=== PATIENT | female | born 1930 | race Caucasian/White ===

== ENCOUNTER 2017-03-13 22:22 | Emergency (ER) | payer MEDICARE, BC ==
[~2017-03-13] VITALS: Ht 160 cm; Wt 68.0 kg
--- NOTE | 2017-03-13 22:40 | NUR ---
DR PUGA INTO EVAL PATIENT Addendum: 03/13/17 at 2330 by [email or web address] Patient discharged to home in stable conditon WITH SON TAKING PATIENT HOME. Written and verbal after care instructions given. Patient verbalizes understanding of instructions. PLACED PATIENT ON WHEELCHAIR TO PLACE IN PRIVATE VEHICLE
[2017-03-13] MEDS ORDERED: LIDOCAINE HCL 2% 20 ML VIAL TP ONE (23:15)
[2017-03-13 23:31] VITALS: BP 140/66
== END 2017-03-13 23:32 | disposition home or self-care (01) ==
LOC: ER 22:28
DX: S01.81XA Laceration without foreign body of other part of head, initial encounter (principal); I10 Essential (primary) hypertension; Z88.0 Allergy status to penicillin; W25.XXXA Contact with sharp glass, initial encounter; Y92.89 Other specified places as the place of occurrence of the external cause; Y93.89 Activity, other specified; Y99.8 Other external cause status
CPT/HCPCS: A4217; A4663

== ENCOUNTER 2021-02-25 15:22 | Inpatient (IN) | payer MEDICARE, BC ==
[~2021-02-25] VITALS: Ht 157.5 cm; Wt 47.6 kg
[2021-02-25] MEDS ORDERED: METO-358 PO (15:54)
[2021-02-25] MEDS ORDERED: LOSA1TAB36 PO (15:54)
[2021-02-25] MEDS ORDERED: AMLO10TA59 PO (15:54)
[2021-02-25] MEDS ORDERED: MELO-107 PO (15:54)
[2021-02-25 15:55] LABS: HEMATOCRIT 38.7 % (31.2-41.9); MEAN CORPUSCULAR HEMOGLOBIN 30.2 uug (24.7-32.8); MEAN CORPUSCULAR VOLUME 88.9 fL (75.5-95.3); PLATELET COUNT (AUTO) 192 K/uL (179-408)
[2021-02-25 15:58] LABS: CREATININE 1.3 mg/dL (0.6-1.3); POTASSIUM 4.3 mmol/L (3.5-5.1)
[2021-02-25 16:11] LABS: BILIRUBIN,DIRECT 0.1 mg/dL (0.0-0.2); BILIRUBIN,TOTAL 0.6 mg/dL (0.2-1.0); TOTAL PROTEIN, SERUM 7.1 g/dL (6.4-8.2)
[2021-02-25 16:28] LABS: *BILIRUBIN,URIN NEGATIVE (NEGATIVE); *BLOOD, URINE 3+ (NEGATIVE); *CLARITY,URINE CLOUDY (CLEAR); *KETONES,URINE TRACE (NEGATIVE); *UROBILINOGEN,URINE 0.2 E.U./dl (NORMAL); LEUKOCYTE ESTERASE ,URINE 3+ (NEGATIVE); NITRITE, URINE NEGATIVE (NEGATIVE); UGLUCOSE TRACE (NEGATIVE)
[2021-02-25] MEDS ORDERED: IV NORMAL SALINE 500 ML IV ONE (16:30)
[2021-02-25] MEDS ORDERED: CEFTRIAXONE 1 G in IV DEXTROSE 5% 50 ML IV ONE (16:30)
[2021-02-25 16:38] LABS: *COLOR,URINE DARK YELLOW (YELLOW)
[2021-02-25 16:39] LABS: BACTERIA,URINE MODERATE /HPF (NONE SEEN); RBC,URINE TNTC /HPF (0-3); SQUAMOUS EPITHELIAL CELL,UR FEW /HPF (NONE SEEN); WBC,URINE TNTC /HPF (0-3)
[2021-02-25] MEDS ORDERED: AZITHROMYCIN 250 MG TABLET PO ONE (16:45)
[2021-02-25] MEDS ORDERED: ACETAMINOPHEN ES 500 MG TABLET PO ONE (16:45)
[2021-02-25] MEDS ORDERED: CEFTRIAXONE /D5W 50ML IVPB **ER PYXIS IV ONE (16:51)
[2021-02-25] MEDS ORDERED: AZITHROMYCIN 250 MG TABLET ONE (16:51)
[2021-02-25] MEDS ORDERED: ACETAMINOPHEN ES 500 MG TABLET ONE (16:51)
--- NOTE | 2021-02-25 18:10 | NUR ---
[facility] [place] PROVIDED FOR PT. PT'S SON ATBED SIDE ASSISSTING PT.
[2021-02-25] MEDS ORDERED: Z GUARD REMEDY PASTE 57 GM TUBE TOP PRN (18:30)
[2021-02-25] MEDS ORDERED: MAGNESIUM HYDROXIDE 30 ML LIQUID UDC PO PRN (18:30)
[2021-02-25] MEDS ORDERED: ONDANSETRON 4 MG/2 ML VIAL IV PRN (18:30)
[2021-02-25] MEDS ORDERED: ACETAMINOPHEN 325 MG TABLET PO PRN (18:30)
[2021-02-25] MEDS ORDERED: ENOXAPARIN SODIUM 30 MG/0.3 ML DISP.SYRIN SQ SCH (21:30)
--- NOTE | 2021-02-25 22:01 | NUR ---
Patient refused to have any procedure done like X Rays and EKG.
--- NOTE | 2021-02-25 22:05 | NUR ---
Yadira collazo in EDM - 02/25/21 at 2208 by [email or web address] Patient states he sleeps in his Semi Truck but truck is in shop today. Is homeless at this time.
--- NOTE | 2021-02-25 22:07 | NUR ---
Note zay in EDM - 02/25/21 at 2210 by [email or web address] Patient does not wish to proceed with medical care recommended by Dr. Song ). Patient given information related to possible complications, up to and including , which could occur as a result of leaving the hospital at this time. Patient verbalizes understanding of risks involved due to leaving against medical advice. Patient has signed AMA form.
[2021-02-25] MEDS ORDERED: IPRATROPIUM BROMIDE 0.5 MG/2.5 ML NEBU NEB PRN (22:30)
[2021-02-25] MEDS ORDERED: ALBUTEROL SULFATE 2.5 MG/3 ML NEBU NEB PRN (22:30)
--- NOTE | 2021-02-25 22:42 | NUR ---
Transfered to 3rd floor Tele via gurny with no distress noted.
--- NOTE | 2021-02-25 23:00 | NUR ---
Admitted patient to Tele unit from Er via [facility] with Dx of sepsis and acute hypoxic resp failure. Patient alertx1 with confusion.Oriented patient to place ,unit ,room and call light.Denies pain or discomfort at this time .O2 at 2LPM via NC sating 96 %.Denies SOB.IV on left hand was out. Inserted new Iv line on left FA using 22 g with good blood return. Started IVF running at 70 ml/hr.Tolerated well.NSR on Tele. Safety measures in place.Will continue to monitor.
[2021-02-25] MEDS: IV NS 1000 ML 1,000 ML IV PRN (23:02)
[2021-02-25 23:30] VITALS: BP 136/49
[2021-02-26 05:12] VITALS: BP 130/58
[2021-02-26] MEDS: PANTOPRAZOLE SODIUM 40 MG TABLET.DR PO SCH (06:03)
--- NOTE | 2021-02-26 06:10 | NUR ---
ABG WAS DONE BY EZRA PARRA ON 2 2L/M NC , DOING WELL. Jerson MARTINEZ MEMBER OF THE LEGISLATIVE [employer]NCIL Addendum: 02/26/21 at 0610 by HENRIK PARRA Amended: Links added.
[2021-02-26 06:39] LABS: HEMATOCRIT 33.1 % (31.2-41.9); MEAN CORPUSCULAR VOLUME 87.7 fL (75.5-95.3); PLATELET COUNT (AUTO) 178 K/uL (179-408)
[2021-02-26 06:48] LABS: MAGNESIUM 1.8 mg/dL (1.8-2.4); POTASSIUM 3.6 mmol/L (3.5-5.1)
[2021-02-26 08:00] VITALS: BP 126/54
[2021-02-26] MEDS: AMLODIPINE 10 MG TABLET PO SCH (08:56)
[2021-02-26] MEDS: METOPROLOL SUCCINATE XL 50 MG TAB.SR.24H PO SCH (08:56)
[2021-02-26] MEDS: HYDROCHLOROTHIAZIDE 12.5 MG CAPSULE PO SCH (08:57)
[2021-02-26] MEDS: LOSARTAN POTASSIUM 50 MG TABLET PO SCH (08:57)
--- NOTE | 2021-02-26 09:38 | NUR ---
Received pt. Pt is a/o x 2-3, confused at times. Mental status improved in comparison to yesterday per report given and per son's notation this am. Son at bedside. Pt presents with normal sinus rhythm saturating at 97% on 2 L NC at this time. No temperature this am. Pt continues to have pain during urination but WBCs downward trending at 12.6 this am. Lactic acid decreased to 0.8. Blood and urine specimens still pending, Pt will have and ID consult as well as Pulmonology consult still pending. Pt does not seem to be in any acute distress, comfort measures provided ,call light within reach. Will continue to monitor.
[2021-02-26 12:00] VITALS: BP 133/70
[2021-02-26] MEDS: IV NS 1000 ML 1,000 ML IV PRN (12:48)
[2021-02-26] MEDS ORDERED: CEFEPIME HCL 1 G in IV DEXTROSE 5% 50 ML IV SCH (15:00)
[2021-02-26 16:09] VITALS: BP 143/55
[2021-02-26] MEDS ORDERED: CEFTRIAXONE 1 G in IV DEXTROSE 5% 50 ML IV SCH (17:00)
[2021-02-26] MEDS: PHENAZOPYRIDINE HCL 100 MG TABLET PO SCH ×2 (18:20→21:15)
--- NOTE | 2021-02-26 18:47 | NUR ---
Pt is a/o x 3, forgetful at times. Pt is presenting with normal sinus rhythm, titrated off of oxygen, saturating 93% on room air. Pt is cooperative with care, takes medications whole orally. Pt is to be NPO at midnight due to having a cystoscopy in the am. Consent was given by the son, Evans. Pt shows no signs of acute distress. Currently running NS at 70cc on the left forearm (22g, patent and intact. Comfort measures provided, call light within reach, Will endorse to director nursery school.
--- NOTE | 2021-02-26 19:30 | NUR ---
RECEIVED PT AWAKE, ALERT AND ORIENTEDX4.. PT IN NO ACUTE DISTRESS. IV INTACT. SAFETY AND COMFORT PROVIDED.LEFT A MESSAGE TO HIS SON TO CALLBACK FOR CONSENT NEEDED. WILL CONTINUE TO MONITOR.
--- NOTE | 2021-02-26 19:43 | NUR ---
Per review of chart, only verbal consent was given by son for the cystoscopy. Consent order put in at 1926 for cystoscopy and bladder resection. Consent not obtained for this procedure, endorsed to slot shift manager RN.
--- NOTE | 2021-02-26 19:49 | NUR ---
received Dr. Britt telephone order to get consent for the procedure tomorrow and pt npo after midnight. Pt aware.
[2021-02-26 20:00] VITALS: BP 96/58
[2021-02-26] MEDS: ENOXAPARIN SODIUM 40 MG/0.4 ML DISP.SYRIN SQ SCH (20:10)
--- NOTE | 2021-02-26 21:21 | NUR ---
Trying to call the son and left message several times to call back for the consent of his mother for procedure tomorrow. Got consent with the granddaughter who knows the procedure will take place ryan. Witness with another RN over the phone.
--- NOTE | 2021-02-26 23:45 | NUR ---
Son called and gave consent . Another RN witness. Son verify the home medication of her mother.
[2021-02-27] VITALS: BP 114/38
[2021-02-27 04:00] VITALS: BP 145/53
[2021-02-27] MEDS: IV NS 1000 ML 1,000 ML IV PRN (04:05)
[2021-02-27] MEDS: PHENAZOPYRIDINE HCL 100 MG TABLET PO SCH ×3 (06:00→21:30)
--- NOTE | 2021-02-27 06:06 | NUR ---
PT SLEPT COMFORTABLY. PT IN NO ACUTE DISTRESS. IV INTACT. PT STABLE. PT ON SINUS RHYTHM.PT ON NPO. PT STABLE. SAFETY AND COMFORT PROVIDED. WILL ENDORSE TO INCOMING NURSE FOR CONTINUITY OF CARE.
[2021-02-27] MEDS: PANTOPRAZOLE SODIUM 40 MG TABLET.DR PO SCH (06:14)
[2021-02-27 06:27] LABS: HEMATOCRIT 31.2 % (31.2-41.9); MEAN CORPUSCULAR VOLUME 87.2 fL (75.5-95.3); PLATELET COUNT (AUTO) 162 K/uL (179-408)
[2021-02-27 06:41] LABS: CREATININE 0.9 mg/dL (0.6-1.3); MAGNESIUM 1.7 mg/dL (1.8-2.4); PHOSPHOROUS 3.1 mg/dL (2.5-4.9); POTASSIUM 3.1 mmol/L (3.5-5.1)
[2021-02-27 08:00] VITALS: BP 128/46
[2021-02-27] MEDS: CEFEPIME HCL 1 G in IV DEXTROSE 5% 50 ML IV SCH ×2 (08:53→20:21)
[2021-02-27] MEDS: METOPROLOL SUCCINATE XL 50 MG TAB.SR.24H PO SCH (08:54)
[2021-02-27 08:56] LABS: ABG BASE EXCESS -1.3 mmol/L; ABG HCO3 22.3 mmol/L; ABG PCO2 33.5 mmHg (35.0-45.0); ABG PH 7.441 (7.350-7.450); ABG PO2 65.8 mmHg (75.0-100.0); ABG SITE RIGHT RADIAL; ABG TOTAL HEMOGLOBIN 11.7 G/dL (12.0-16.0); COHb 0.4 % (0.5-1.5); MetHb 0.1 % (0.0-1.5); O2Hb 93.4 % (94.0-97.0); VENT MODE RA
[2021-02-27] MEDS: AMLODIPINE 10 MG TABLET PO SCH (09:00)
[2021-02-27] MEDS: LOSARTAN POTASSIUM 50 MG TABLET PO SCH (09:00)
[2021-02-27] MEDS: HYDROCHLOROTHIAZIDE 12.5 MG CAPSULE PO SCH (09:00)
[2021-02-27] MEDS ORDERED: ROCURONIUM BROMIDE 50 MG/5 ML VIAL ONE (09:51)
[2021-02-27] MEDS ORDERED: FENTANYL CITRATE 100 MCG/2 ML AMPUL ONE ×2 (09:51→12:02)
--- NOTE | 2021-02-27 10:21 | NUR ---
Received pt. Pt is a/o x 3 forgetful at times, saturating 95% on room air. D/Cd telemetry. Pt was taken to OR around 0940 for cystoscopy BP 128/46. 0900 hydrochlorothiazide held due to potassium being low (3.1). An order for potassium replacement has been ordered but pt currently not on floor. Amlodipine and Losartan also held per OR request due to pt needing to receive anesthesia during procedure and it would put her at risk for hypotension. Metoprolol okay to be given per OR. Pt aware of procedure, consent signed by son in chart. No signs of acute distress or discomfort. Will continue to monitor pt.
[2021-02-27] MEDS: POTASSIUM CHLORIDE 50 ML IV SCH ×4 (10:45→14:37)
[2021-02-27] MEDS ORDERED: ONDANSETRON 4 MG/2 ML VIAL IV ONE (11:43)
[2021-02-27] MEDS ORDERED: GLYCOPYRROLATE 0.2 MG/ML VIAL IJ ONE (11:43)
[2021-02-27] MEDS ORDERED: DEXAMETHASONE SOD PHOSPHATE 4 MG INJ IV ONE (11:43)
[2021-02-27] MEDS ORDERED: hydrALAZINE HCL 20 MG/1 ML VIAL IM ONE (11:43)
[2021-02-27] MEDS ORDERED: NEOSTIGMINE METHYLSULFATE 10 MG/10 ML VIAL IM ONE (11:43)
[2021-02-27] MEDS ORDERED: SEVOFLURANE 250 ML BOTTLE IH ONE (11:43)
[2021-02-27] MEDS ORDERED: LIDOCAINE-MPF 2% 5 ML VIAL IJ ONE (11:43)
[2021-02-27] MEDS ORDERED: SUCCINYLCHOLINE CHLORIDE 200 MG/10 ML VIAL IV ONE (11:43)
[2021-02-27] MEDS ORDERED: ETOMIDATE 20 MG/10 ML VIAL IV ONE (11:43)
[2021-02-27 13:00] VITALS: BP 134/50
--- NOTE | 2021-02-27 13:00 | NUR ---
Pt returned from cystoscopy, vitals stable, discussed with family of the pt. Pt is now on lisa catheter on continuous bladder irrigation until completion of current bags of NS hanging. Per OR hang an extra 500cc after completion. Lisa draining clear yellow urine, no blood or clotting in drainage. Pt has manual irrigation ordered as needed after continuous ends. Pt is resumed on cardiac diet.
[2021-02-27] MEDS: MAGNESIUM SULFATE/D5W 100 ML IV SCH ×2 (15:23→18:12)
[2021-02-27] MEDS ORDERED: POTASSIUM CHLORIDE 10 MEQ, LIDOCAINE-MPF 1% 1 ML in IV DEXTROSE 5% 100 ML IV SCH (15:30)
[2021-02-27] MEDS ORDERED: POTASSIUM CHLORIDE 20 MEQ POWDER PACKET PO ONE (16:00)
[2021-02-27 16:05] VITALS: BP 131/50
[2021-02-27] MEDS: ENSURE ENLIVE (VAN) 240 ML LIQUID PO SCH (16:26)
--- NOTE | 2021-02-27 17:33 | NUR ---
Potassium supplement changed from IV to PO by Pharmacy. Ordered a midline insertion for pt due to fragile veins and complaint of pain/ burning sensation. Flushed IV site, stated that it did not burn, primed lining and started fluids again, no complaint of pain so far. IV is in an uncomfortable position, pt would benefit from midline insertion.
--- NOTE | 2021-02-27 19:40 | NUR ---
AO x 2/3, son is at the bedside, on room air saturating at 95%, HARI midline placed, intact and patent. Benavidez catheter draining well, call lights within reach, bed at lowest position, safety measures initiated.
--- NOTE | 2021-02-27 19:41 | NUR ---
Midline inserted on right upper arm 18g. Benavidez draining clear yellow urine. Pt is not in any acute distress or discomfort, call light within reach, endorsed to shift manager.
[2021-02-27 20:00] VITALS: BP 137/56
[2021-02-27] MEDS: ENOXAPARIN SODIUM 40 MG/0.4 ML DISP.SYRIN SQ SCH (20:23)
--- NOTE | 2021-02-27 22:03 | NUR ---
Patient confused, pulled out HARI midline. IV on left forearm still in, intact and patent.
[2021-02-28 04:00] VITALS: BP 125/68
[2021-02-28] MEDS: PANTOPRAZOLE SODIUM 40 MG TABLET.DR PO SCH (06:02)
[2021-02-28] MEDS: PHENAZOPYRIDINE HCL 100 MG TABLET PO SCH ×3 (06:02→21:11)
--- NOTE | 2021-02-28 06:30 | NUR ---
Patient slept intermittently throughout the night, AO X 2, can be forgetful at times, IV intact and patent running NS at 70ml, lisa catheter drained, yellow and cloudy appearance, skin intact, tolerated medication and care. Call lights within reach, safety measures met throughout the night. Will endorse to am shift
[2021-02-28 06:39] LABS: HEMATOCRIT 33.6 % (31.2-41.9); MEAN CORPUSCULAR HEMOGLOBIN 29.9 uug (24.7-32.8); MEAN CORPUSCULAR VOLUME 86.6 fL (75.5-95.3); PLATELET COUNT (AUTO) 212 K/uL (179-408)
[2021-02-28 07:41] LABS: MAGNESIUM 2.3 mg/dL (1.8-2.4); POTASSIUM 5.3 mmol/L (3.5-5.1)
[2021-02-28 08:00] VITALS: BP 122/65
[2021-02-28] MEDS: CEFEPIME HCL 1 G in IV DEXTROSE 5% 50 ML IV SCH ×2 (08:49→21:04)
[2021-02-28] MEDS: HYDROCHLOROTHIAZIDE 12.5 MG CAPSULE PO SCH (09:01)
[2021-02-28] MEDS: METOPROLOL SUCCINATE XL 50 MG TAB.SR.24H PO SCH (09:01)
[2021-02-28] MEDS: LOSARTAN POTASSIUM 50 MG TABLET PO SCH (09:01)
[2021-02-28] MEDS: AMLODIPINE 10 MG TABLET PO SCH (09:01)
[2021-02-28] MEDS: ENSURE ENLIVE (VAN) 240 ML LIQUID PO SCH ×3 (09:02→16:11)
[2021-02-28 11:21] VITALS: BP 114/57
[2021-02-28 15:52] VITALS: BP 116/59
[2021-02-28] MEDS: IV NS 1000 ML 1,000 ML IV PRN (17:18)
--- NOTE | 2021-02-28 18:20 | NUR ---
PATIENT REMAINED STABLE DURING THE SHIFT. ALL NEEDS ATTENDED. NO DISTRESS IDENTIFIED. SAFETY PRECAUTION MAINTAINED. FC DRAINING WELL. DENIES PAIN. IV INTACT TO THE LEFT FOREARM, INFUSING WELL. WILL ENDORSE TO THE NEXT SHIFT FOR CONTINUITY OF CARE.
[2021-02-28] MEDS ORDERED: SODIUM POLYSTYRENE SULFONATE 15 G/60 ML LIQUID UDC PO ONE (18:45)
[2021-02-28 20:06] VITALS: BP 137/59
[2021-02-28] MEDS: ENOXAPARIN SODIUM 40 MG/0.4 ML DISP.SYRIN SQ SCH (21:04)
--- NOTE | 2021-03-01 01:42 | NUR ---
Pt. is received awake in her room. Pt. is alert, oriented X 2 to person. Pt. affect is cooperative, confused. Left arm IV, no infiltration noted, running well. Room air. Compliant with medications. Redness on buttocks, cream barrier applied. Ambulates with assistance. Fall and safety precautions implemented.
[2021-03-01 04:12] VITALS: BP 135/66
[2021-03-01] MEDS: PANTOPRAZOLE SODIUM 40 MG TABLET.DR PO SCH (06:26)
[2021-03-01] MEDS: PHENAZOPYRIDINE HCL 100 MG TABLET PO SCH ×2 (06:26→13:30)
--- NOTE | 2021-03-01 07:47 | NUR ---
Received awake and oriented x3. No resp distress. Wants to go home. Denies pain or sob. Fc draining yellow urine. no hematuria. iv left arm patent, hydration ongoing and tolerated. pt is pleasant. safety measures in place. comfortable. cont to monitor.
[2021-03-01 07:58] LABS: HEMATOCRIT 35.3 % (31.2-41.9); MEAN CORPUSCULAR HEMOGLOBIN 29.6 uug (24.7-32.8); MEAN CORPUSCULAR VOLUME 87.5 fL (75.5-95.3); PLATELET COUNT (AUTO) 214 K/uL (179-408)
[2021-03-01 08:04] LABS: CREATININE 0.8 mg/dL (0.6-1.3); POTASSIUM 3.2 mmol/L (3.5-5.1)
[2021-03-01] MEDS: IV NS 1000 ML 1,000 ML IV PRN (08:11)
[2021-03-01] MEDS: CEFEPIME HCL 1 G in IV DEXTROSE 5% 50 ML IV SCH (08:11)
[2021-03-01] MEDS: ENSURE ENLIVE (VAN) 240 ML LIQUID PO SCH ×2 (08:35→13:30)
[2021-03-01] MEDS: HYDROCHLOROTHIAZIDE 12.5 MG CAPSULE PO SCH (08:35)
[2021-03-01] MEDS: METOPROLOL SUCCINATE XL 50 MG TAB.SR.24H PO SCH (08:36)
[2021-03-01] MEDS: AMLODIPINE 10 MG TABLET PO SCH (08:36)
[2021-03-01] MEDS: LOSARTAN POTASSIUM 50 MG TABLET PO SCH (08:36)
[2021-03-01] MEDS: POTASSIUM CHLORIDE 20 MEQ TAB.PRT.SR PO SCH ×2 (10:14→11:47)
[2021-03-01 11:24] VITALS: BP 123/48
[2021-03-01 15:20] VITALS: BP 128/45
--- NOTE | 2021-03-01 16:00 | NUR ---
pt aware she's being discharged. no acute distress. lisa catheter intact draining yellow urine. no hematuria/sediments noted. follow up and medication instruction given and she verbalized understanding. removed iv no bleeding noted. belongings list completed.
--- NOTE | 2021-03-01 16:26 | NUR ---
pt picked up by granddaughter nader and son ev. no acute distress. fc intact and patent. both son and granddaughter are aware of follow up appt with dr. garcia and expressed understanding. granddaughter stated she was contacted by [place] (karyna) that hh will be visiting her grandmother. pt discharged via private car in stable condition.
== END 2021-03-01 16:20 | disposition home health service (06) | DRG 871 ==
LOC: ER 15:24 → TRANSITION 21:08 → TELE3 22:15 → MEDSURG3 02-27 10:51
PROVIDERS: ADMIT Nurse Practitioner Family; ATTEND Nurse Practitioner Acute Care
DX: A41.9 Sepsis, unspecified organism (principal); J96.21 Acute and chronic respiratory failure with hypoxia; N12 Tubulo-interstitial nephritis, not specified as acute or chronic; E87.2 Acidosis; E44.1 Mild protein-calorie malnutrition; J44.1 Chronic obstructive pulmonary disease with (acute) exacerbation; N17.9 Acute kidney failure, unspecified; R65.20 Severe sepsis without septic shock; F03.90 Unspecified dementia, unspecified severity, without behavioral disturbance, psychotic disturbance, mood disturbance, and anxiety; Z86.73 Personal history of transient ischemic attack (TIA), and cerebral infarction without residual deficits; F09 Unspecified mental disorder due to known physiological condition; I10 Essential (primary) hypertension; I70.8 Atherosclerosis of other arteries; K57.30 Diverticulosis of large intestine without perforation or abscess without bleeding; K80.20 Calculus of gallbladder without cholecystitis without obstruction; N20.0 Calculus of kidney; N28.1 Cyst of kidney, acquired; B96.89 Other specified bacterial agents as the cause of diseases classified elsewhere; Z87.440 Personal history of urinary (tract) infections; Z87.891 Personal history of nicotine dependence; Z96.643 Presence of artificial hip joint, bilateral
CPT/HCPCS: 36415; 36600; 70030-TC; 70450; 71045; 83605; 83735; 84100; 85025; 85730; 86803; 87040; 87086; 87400; 87806; 93005; 93307; 97161; A4217; A4663; A9150; G0378; J0330; J0360; J0692; J0696; J1100; J1650; J2405; J3010; J3475; J3480; J3490; J7030; J7040; J7060; Q0144

== ENCOUNTER 2021-09-18 14:10 | Inpatient (IN) | payer MEDICARE, BC ==
[~2021-09-18] VITALS: Ht 157.5 cm; Wt 40.8 kg
[~2021-09-18 14:10] MED LIST: AMLO10TA59 PO; LOSA1TAB36 PO; MELO-107 PO; METO-358 PO
[2021-09-18] MEDS ORDERED: MORP15TA PO (14:33)
[2021-09-18] MEDS ORDERED: LORA-258 PO (14:33)
[2021-09-18 14:44] LABS: ABG BASE EXCESS -8.1 mmol/L; ABG HCO3 17.1 mmol/L; ABG PCO2 34.6 mmHg (35.0-45.0); ABG PH 7.312 (7.350-7.450); ABG PO2 52.6 mmHg (75.0-100.0); ABG SITE RIGHT BRACHIAL; COHb 0.4 % (0.5-1.5); MetHb 0.2 % (0.0-1.5); O2Hb 84.6 % (94.0-97.0)
[2021-09-18] MEDS ORDERED: IV NORMAL SALINE 500 ML BAG IV ONE ×3 (14:45→15:30)
[2021-09-18 14:46] LABS: HEMATOCRIT 41.4 % (31.2-41.9); MEAN CORPUSCULAR HEMOGLOBIN 29.4 uug (24.7-32.8); PLATELET COUNT (AUTO) 465 K/uL (179-408)
--- NOTE | 2021-09-18 15:01 | NUR ---
Placed a second HL ON LAC 18 angio.
--- NOTE | 2021-09-18 15:05 | NUR ---
Pt placed on BIPAP by RT.
[2021-09-18] MEDS ORDERED: METRONIDAZOLE 500 MG/NS 100ML 100 ML IV ONE (15:08)
[2021-09-18] MEDS ORDERED: CEFTRIAXONE /D5W 50ML IVPB **ER PYXIS IV ONE (15:08)
[2021-09-18 15:10] LABS: ALANINE AMINOTRANSFERASE 16 U/L (14-59); ALKALINE PHOSPHATASE 85 U/L (50-136); ASPARTATE AMINOTRANSFERASE 19 U/L (15-37); BILIRUBIN,TOTAL 0.6 mg/dL (0.2-1.0); CARBON DIOXIDE 20 mmol/L (21-32); CREATININE 4.3 mg/dL (0.6-1.3); GLUCOSE 190 mg/dL (74-106); LIPASE 35 U/L (73-393); TOTAL PROTEIN, SERUM 8.2 g/dL (6.4-8.2)
[2021-09-18 15:14] LABS: CHLORIDE 95 mmol/L (98-107)
[2021-09-18] MEDS ORDERED: METRONIDAZOLE 500 MG/NS 100 ML PIGGYBACK IV ONE (15:15)
[2021-09-18] MEDS ORDERED: CEFTRIAXONE 1 G in IV DEXTROSE 5% 50 ML IV ONE (15:15)
[2021-09-18 15:24] LABS: POTASSIUM 7.6 mmol/L (3.5-5.1); UREA NITROGEN, BLOOD 123 mg/dL (7-18)
[2021-09-18] MEDS ORDERED: FUROSEMIDE 20 MG/2 ML VIAL IVP ONE (15:30)
[2021-09-18] MEDS ORDERED: ALBUTEROL SULFATE 2.5 MG/3 ML NEBU NEB ONE (15:30)
[2021-09-18] MEDS ORDERED: DEXTROSE 50% 50 ML DISP.SYRIN IV ONE (15:30)
[2021-09-18] MEDS ORDERED: SODIUM BICARBONATE 8.4% 50 MEQ/50 ML DISP.SYRIN IV ONE ×2 (15:30→15:41)
[2021-09-18] MEDS ORDERED: INSULIN REGULAR, HUMAN 300 UNIT/3 ML VIAL IV ONE (15:30)
[2021-09-18 15:32] LABS: *BILIRUBIN,URIN NEGATIVE (NEGATIVE); *BLOOD, URINE 3+ (NEGATIVE); *COLOR,URINE Other (YELLOW); *KETONES,URINE 1+ (NEGATIVE); *UROBILINOGEN,URINE 0.2 E.U./dl (NORMAL); LEUKOCYTE ESTERASE ,URINE 3+ (NEGATIVE); NITRITE, URINE NEGATIVE (NEGATIVE); PH,URINE 7.5 (5.0-8.0); UGLUCOSE NEGATIVE (NEGATIVE)
[2021-09-18 15:35] LABS: *CLARITY,URINE TURBID (CLEAR)
[2021-09-18] MEDS ORDERED: ALBUTEROL SULFATE 2.5 MG/3 ML NEBU ONE (15:39)
[2021-09-18] MEDS ORDERED: FUROSEMIDE 20 MG/2 ML VIAL ONE (15:40)
[2021-09-18] MEDS ORDERED: DEXTROSE 50% 50 ML DISP.SYRIN ONE (15:41)
[2021-09-18] MEDS ORDERED: INSULIN REGULAR, HUMAN 300 UNIT/3 ML VIAL ONE (15:42)
--- NOTE | 2021-09-18 16:00 | NUR ---
Hands off report given to Woody Arnold.
[2021-09-18 17:51] VITALS: BP 119/78
[2021-09-18] MEDS ORDERED: ONDANSETRON 4 MG/2 ML VIAL IV PRN (18:30)
[2021-09-18] MEDS ORDERED: ALBUTEROL SULFATE 1.25 MG/3 ML NEBU NEB PRN (18:30)
[2021-09-18] MEDS ORDERED: ACETAMINOPHEN 650 MG SUPP.RECT RC PRN (18:30)
[2021-09-18] MEDS ORDERED: MEROPENEM 500 MG in IV NORMAL SALINE 50 ML IV SCH (18:30)
[2021-09-18] MEDS ORDERED: DEXTROSE 50% 50 ML DISP.SYRIN IV PRN (18:30)
--- NOTE | 2021-09-18 18:42 | NUR ---
patient brought in on bipap with 12/5 rate of 20 and fio2 at 80% after deep suctioning. pictures taken of multiple skin sores. patient is arousable, garbled speech. is able to move extremities with moderate weakness. patient has had rounds of radiation therapy per son at bedside. Has history bladder CA. patient also clearly aspirated. post suctioning have ensure suctioned out and son clarified that they were attempting to give to the patient due to not eating x4 days.
--- NOTE | 2021-09-18 18:56 | NUR ---
patient also received with lisa in place and french/ cream color urine and thick.
[2021-09-18 19:00] VITALS: BP 104/70
[2021-09-18] MEDS ORDERED: VANCOMYCIN IV 500 MG in IV DEXTROSE 5% 100 ML IV ONE (19:00)
[2021-09-18 19:04] LABS: CARBON DIOXIDE 18 mmol/L (21-32); CHLORIDE 103 mmol/L (98-107); CREATININE 3.9 mg/dL (0.6-1.3); GLUCOSE 193 mg/dL (74-106); MAGNESIUM 3.1 mg/dL (1.8-2.4); PHOSPHOROUS 7.6 mg/dL (2.5-4.9)
[2021-09-18 19:15] LABS: POTASSIUM 6.2 mmol/L (3.5-5.1); UREA NITROGEN, BLOOD 111 mg/dL (7-18)
[2021-09-18 19:54] LABS: BACTERIA,URINE MANY /HPF (NONE SEEN); RBC,URINE 50-80 /HPF (0-3); SQUAMOUS EPITHELIAL CELL,UR MODERATE /HPF (NONE SEEN); WBC,URINE TNTC /HPF (0-3)
[2021-09-18] MEDS: IV D5/ 0.9% NACL 1,000 ML IV PRN (19:56)
[2021-09-18 20:00] VITALS: BP 112/70
--- NOTE | 2021-09-18 20:00 | NUR ---
rounds made patient in bed very lethargic . patient withdraws to painful stimuli and at times notes moving her upper bilateral arms slow and very weak . tolerating bipap 12/5 rate 20 fio2 60% saturation 99 to 100 % rr 20 to 23 RATE . NPO ,F/C TO BSD with orange colored urine concentrated and with sediments .
--- NOTE | 2021-09-18 20:29 | NUR ---
CALLED AND SPOKED WITH PATIENT SON , CONSENT OBTAINED FOR PICCLINE IN INSERTION AND CODE STATUS OBTAINED PATIENT IS DNR AND DNI . SPOKED WITH SON GERARD WRIGHT.
[2021-09-18] MEDS ORDERED: REMEDY ESSENTIAL ZINC PASTE 113 GM TOP PRN (20:45)
[2021-09-18 21:00] VITALS: BP 128/68
[2021-09-18] MEDS: MEROPENEM 500 MG in IV NORMAL SALINE 50 ML IV SCH (21:09)
[2021-09-18] MEDS: REMEDY ESSENTIAL ZINC PASTE 113 GM TOP SCH (21:10)
--- NOTE | 2021-09-18 21:30 | NUR ---
turned and reposition patient offloaded back with pillows . hob up . no s/s of pain,no s/s of respiratory distress .
--- NOTE | 2021-09-18 21:30 | NUR ---
DR: JARED CAME AND VISITED PATIENT ,UPDATED WITH PATIENT V/S , LABS AND MENTATION .
[2021-09-18 22:00] VITALS: BP 100/72
[2021-09-18 23:00] VITALS: BP 117/76
--- NOTE | 2021-09-18 23:24 | NUR ---
RICK MARTINEZ RN AT B/S , COMPLETED PICCLINE INSERTION . PATIENT TOLERATED PROCEDURE .
[2021-09-18] MEDS: BLOOD SUGAR DIAGNOSTIC 1 EACH STRIP VI SCH (23:52)
[2021-09-19] VITALS (23 sets, daily range): BP systolic 87–138; BP diastolic 51–82
--- NOTE | 2021-09-19 04:00 | NUR ---
bath patient changed soiled linens and gown .placed Mepilex to sacral area as well other areas with redness .Benavidez care done and oral care done . offloaded back with pillow and bilateral lower leg elevated with pillow ,heels off bed.
[2021-09-19] MEDS: INSULIN REGULAR, HUMAN 300 UNIT/3 ML VIAL SQ PRN ×3 (05:28→12:12)
[2021-09-19] MEDS: BLOOD SUGAR DIAGNOSTIC 1 EACH STRIP VI SCH ×4 (05:29→23:32)
[2021-09-19 05:31] LABS: HEMATOCRIT 30.4 % (31.2-41.9); MEAN CORPUSCULAR HEMOGLOBIN 29.7 uug (24.7-32.8); MEAN CORPUSCULAR VOLUME 89.4 fL (75.5-95.3); PLATELET COUNT (AUTO) 348 K/uL (179-408)
[2021-09-19 05:46] LABS: ALANINE AMINOTRANSFERASE 14 U/L (14-59); ALKALINE PHOSPHATASE 65 U/L (50-136); ASPARTATE AMINOTRANSFERASE 23 U/L (15-37); BILIRUBIN,TOTAL 0.3 mg/dL (0.2-1.0); CARBON DIOXIDE 23 mmol/L (21-32); CHLORIDE 106 mmol/L (98-107); CHOLESTEROL 118 mg/dL (<200); CREATININE 3.5 mg/dL (0.6-1.3); GLUCOSE 200 mg/dL (74-106); HDL CHOLESTEROL 46 mg/dL (40-60); MAGNESIUM 2.8 mg/dL (1.8-2.4); PHOSPHOROUS 6.3 mg/dL (2.5-4.9); POTASSIUM 5.9 mmol/L (3.5-5.1); TOTAL PROTEIN, SERUM 6.3 g/dL (6.4-8.2); TRIGLYCERIDES 117 MG/DL (30-150)
[2021-09-19 05:54] LABS: THYROID STIMULATING HORMONE 0.909 mIU/mL (0.358-3.740)
[2021-09-19 06:24] LABS: VANCOMYCIN,RANDOM 7.6 ug/mL (18.0-26.0)
[2021-09-19 06:31] LABS: UREA NITROGEN, BLOOD 107 mg/dL (7-18)
[2021-09-19] MEDS: IV D5/ 0.9% NACL 1,000 ML IV PRN ×2 (07:52→20:09)
[2021-09-19] MEDS ORDERED: VANCOMYCIN IV 500 MG in IV DEXTROSE 5% 100 ML IV ONE (08:00)
[2021-09-19] MEDS: PANTOPRAZOLE SODIUM 40 MG VIAL IV SCH (08:51)
[2021-09-19] MEDS: REMEDY ESSENTIAL ZINC PASTE 113 GM TOP SCH ×2 (08:51→20:09)
[2021-09-19 12:37] LABS: *BILIRUBIN,URIN NEGATIVE (NEGATIVE); *BLOOD, URINE 3+ (NEGATIVE); *CLARITY,URINE TURBID (CLEAR); *COLOR,URINE YELLOW (YELLOW); *KETONES,URINE NEGATIVE (NEGATIVE); *UROBILINOGEN,URINE 0.2 E.U./dl (NORMAL); LEUKOCYTE ESTERASE ,URINE 3+ (NEGATIVE); NITRITE, URINE NEGATIVE (NEGATIVE); PH,URINE 5.5 (5.0-8.0); UGLUCOSE NEGATIVE (NEGATIVE)
[2021-09-19 15:07] LABS: *CREATININE,URINE 70.6 mg/dL (30-125); *URINE TOTAL PROTEIN RANDOM 137.6 mg/dL (<150/24HR)
[2021-09-19 17:12] LABS: BACTERIA,URINE MODERATE /HPF (NONE SEEN); RBC,URINE 20-50 /HPF (0-3); SQUAMOUS EPITHELIAL CELL,UR FEW /HPF (NONE SEEN); WBC,URINE TNTC /HPF (0-3)
--- NOTE | 2021-09-19 20:05 | NUR ---
CARMENCITA PATIENT SON CAME AND WANTS TO SPEAK TO THE DOCTOR ASSIGNED TO HER MOTHER CALLED [employer] AND LEFT MESSAGE TO THE SERVICE .
[2021-09-19] MEDS: MEROPENEM 500 MG in IV NORMAL SALINE 50 ML IV SCH (20:09)
--- NOTE | 2021-09-19 20:45 | NUR ---
DR: JARED CAME AND SPOKED WITH PATIENT SON AT B/S. : SPOKED WITH PATIENT SON IN LENGTH AND SON QUESTIONS ANSWERED BY DOCTOR JARED.
[2021-09-19] MEDS ORDERED: MEROPENEM 500 MG in IV NORMAL SALINE 50 ML IV SCH (21:00)
--- NOTE | 2021-09-19 21:12 | NUR ---
RESPIRATORY THERAPIST CAME CHANGED BIPAP TO NASAL CANNULA AT 4 LITERS =40% fio2 TO KEEP SATURATION >92 % Addendum: 09/20/21 at 0157 by HIRAL STOCK RN 5 LITERS = TO 40 % FIO2
--- NOTE | 2021-09-19 21:40 | NUR ---
PATIENT IN BED TOLERATING 02 NASAL CANNULA AT 4 LITERS SATURATION 96%.HOB UP CONTINUE TO MONITOR 02.
[2021-09-20] VITALS (23 sets, daily range): BP systolic 92–141; BP diastolic 48–87
--- NOTE | 2021-09-20 00:05 | NUR ---
TURNED AND REPOSITION PATIENT OFFLOADED BACK WITH PILLOWS . BILATERAL LOWER EXTREMITIES ELEVATED WIT H PILLOWS . HEELS OFF THE BED.
--- NOTE | 2021-09-20 01:58 | NUR ---
SLEEPING IN BED EASILY AROUSABLE BY NAME . NO RESPIRATORY DISTRESS NOTED,BREATHING EVEN UNLABORED RR 16 SATURATION 98%.
--- NOTE | 2021-09-20 03:00 | NUR ---
SLEEPING IN BED ,NO RESPIRATORY DISTRESS ,TOLERATING 02 NASAL CANNULA AT 5 LITERS/MIN SATURATION 97 % RR 15. HOB UP , ORAL CARE DONE . PATIENT APPEARS TO BE MORE AWAKE AND AT TIMES NOTED TO GARBLE SOME WOUNDS . NO S/S PAIN . NO FACIAL GRIMACING .
--- NOTE | 2021-09-20 04:24 | NUR ---
AM CARE DONE BATH PATIENT ,CHANGED SOILED LIENS AND GOWN , DURHAM CARE DONE AND ORAL CARE DONE.PLACED MEPILEX TO SACRAL AND OTHER AREAS WITH REDNESS . TURNED AND REPOSITION ,OFFLOADED BACK WITH PILLOW AND BUE AND BLE ELEVATED WITH PILLOWS .ORAL CARE DONE.
[2021-09-20 05:07] LABS: HEMATOCRIT 29.3 % (31.2-41.9); MEAN CORPUSCULAR HEMOGLOBIN 29.7 uug (24.7-32.8); MEAN CORPUSCULAR VOLUME 88.8 fL (75.5-95.3); PLATELET COUNT (AUTO) 205 K/uL (179-408)
[2021-09-20 05:32] LABS: ALANINE AMINOTRANSFERASE 17 U/L (14-59); ALKALINE PHOSPHATASE 62 U/L (50-136); ASPARTATE AMINOTRANSFERASE 15 U/L (15-37); BILIRUBIN,TOTAL 0.2 mg/dL (0.2-1.0); CARBON DIOXIDE 24 mmol/L (21-32); CHLORIDE 114 mmol/L (98-107); CREATINE KINASE, TOTAL 64 U/L (26-192); CREATININE 2.2 mg/dL (0.6-1.3); GLUCOSE 113 mg/dL (74-106); MAGNESIUM 2.4 mg/dL (1.8-2.4); PHOSPHOROUS 3.5 mg/dL (2.5-4.9); POTASSIUM 4.3 mmol/L (3.5-5.1); TOTAL PROTEIN, SERUM 5.5 g/dL (6.4-8.2)
[2021-09-20 05:35] LABS: UREA NITROGEN, BLOOD 93 mg/dL (7-18)
[2021-09-20] MEDS: BLOOD SUGAR DIAGNOSTIC 1 EACH STRIP VI SCH ×4 (05:50→23:16)
[2021-09-20] MEDS ORDERED: VANCOMYCIN IV 500 MG in IV DEXTROSE 5% 100 ML IV ONE (08:00)
[2021-09-20] MEDS: MEROPENEM 500 MG in IV NORMAL SALINE 50 ML IV SCH ×2 (09:18→20:11)
[2021-09-20] MEDS: REMEDY ESSENTIAL ZINC PASTE 113 GM TOP SCH ×2 (09:19→20:11)
[2021-09-20] MEDS: PANTOPRAZOLE SODIUM 40 MG VIAL IV SCH (09:29)
[2021-09-20] MEDS: IV D5/ 0.9% NACL 1,000 ML IV PRN ×2 (09:43→21:53)
--- NOTE | 2021-09-20 19:15 | NUR ---
SEE MY DOCTOR JARED , PER MD TO KEEP PATIENT IN CCU FOR 1 MORE NIGHT AND IN AM HE WILL SPEAK WITH PATIENTS SON .
--- NOTE | 2021-09-20 20:00 | NUR ---
PATIENT IN BED OPEN EYES SPONTANEOUSLY NO S/S OF RESPIRATORY DISTRESS TOLERATING 02 NASAL CANNULA AT 0.5 LITERS SATURATION 98 TO 100 RR 19 TO 20. PATIENT ON AND OFF GARRiffRaff WORLD , ABLE TO MOVED BILATERAL UPPER EXTREMITIES SLOW AND WEAK,BILATERAL LOWER EXTREMITIES VERY WEAK .
--- NOTE | 2021-09-20 20:45 | NUR ---
SON CARMENCITA CAME AND VISITED PATIENT UPDATED WITH PATIENT CONDITION AND SON STAYED AT THE B/S.
[2021-09-21] VITALS (24 sets, daily range): BP systolic 110–163; BP diastolic 41–88
--- NOTE | 2021-09-21 05:00 | NUR ---
BATH PATIENT CHANGED SOILED LINENS AND GOWN .Z GUARD APPLIED TO AFFECTED AREAS . DURHAM CARE DONE ORAL CARE DONE . OFFLOADED BONY PROMINENCES WITH PILLOWS . LOWER BILATERAL LEG ELEVATED WITH PILLOWS AND HEELS OFF BED . ORAL CARE DONE
[2021-09-21 05:11] LABS: HEMATOCRIT 30.4 % (31.2-41.9); MEAN CORPUSCULAR HEMOGLOBIN 29.1 uug (24.7-32.8); MEAN CORPUSCULAR VOLUME 88.8 fL (75.5-95.3); PLATELET COUNT (AUTO) 185 K/uL (179-408)
[2021-09-21 05:21] LABS: ALANINE AMINOTRANSFERASE 16 U/L (14-59); ALKALINE PHOSPHATASE 70 U/L (50-136); ASPARTATE AMINOTRANSFERASE 10 U/L (15-37); BILIRUBIN,TOTAL 0.1 mg/dL (0.2-1.0); CARBON DIOXIDE 24 mmol/L (21-32); CHLORIDE 122 mmol/L (98-107); CREATININE 1.5 mg/dL (0.6-1.3); GLUCOSE 141 mg/dL (74-106); MAGNESIUM 2.1 mg/dL (1.8-2.4); PHOSPHOROUS 2.6 mg/dL (2.5-4.9); POTASSIUM 3.4 mmol/L (3.5-5.1); TOTAL PROTEIN, SERUM 5.6 g/dL (6.4-8.2); UREA NITROGEN, BLOOD 62 mg/dL (7-18); VANCOMYCIN,RANDOM 13.3 ug/mL (18.0-26.0)
[2021-09-21] MEDS: BLOOD SUGAR DIAGNOSTIC 1 EACH STRIP VI SCH ×4 (06:27→23:54)
[2021-09-21] MEDS: INSULIN REGULAR, HUMAN 300 UNIT/3 ML VIAL SQ PRN (06:28)
[2021-09-21] MEDS ORDERED: VANCOMYCIN IV 500 MG in IV DEXTROSE 5% 100 ML IV ONE (08:00)
--- NOTE | 2021-09-21 08:10 | NUR ---
Pt.was seen by was notified about high BP,no orders recive.
[2021-09-21] MEDS: PANTOPRAZOLE SODIUM 40 MG VIAL IV SCH (08:17)
[2021-09-21] MEDS: MEROPENEM 500 MG in IV NORMAL SALINE 50 ML IV SCH ×2 (08:17→20:36)
[2021-09-21] MEDS: REMEDY ESSENTIAL ZINC PASTE 113 GM TOP SCH ×2 (08:17→20:37)
[2021-09-21] MEDS: METOPROLOL TARTRATE 5 MG/5 ML VIAL IVP PRN (08:45)
[2021-09-21] MEDS: POTASSIUM CHLORIDE 50 ML IV SCH ×2 (08:45→09:43)
--- NOTE | 2021-09-21 08:45 | NUR ---
Pt.son at bedside,updated with pt.condition and plan of care.
--- NOTE | 2021-09-21 09:40 | NUR ---
PT.WAS SEEN BY .
--- NOTE | 2021-09-21 10:22 | NUR ---
WOUND CARE CONSULT: PT PRESENTS WITH CACHEXIA, DEEP TISSUE INJURIES TO UPPER BACK AND SACRAL AREA EXTENDING TO BUTTOCKS, WHICH ARE IN EVOLUTION, PRESENT ON ADMISSION. SKIN TEAR NOTED TO LEFT ARM. RECOMMENDATIONS MADE FOR SKIN PROTECTION AND WOUND CARE. DISCUSSED WITH NURSING STAFF. [facility] IN AGREEMENT WITH PLAN OF CARE.
[2021-09-21] MEDS: IV D5/ 0.9% NACL 1,000 ML IV PRN (11:33)
[2021-09-21 16:06] LABS: A/G RATIO 0.7 (0.7-1.7); ALBUMIN 2.1 g/dL (2.9-4.4); ALPHA-1-GLOBULIN 0.4 g/dL (0.0-0.4); ALPHA-2-GLOBULIN 0.7 g/dL (0.4-1.0); BETA GLOBULIN 0.8 g/dL (0.7-1.3); GLOBULIN, TOTAL 2.9 g/dL (2.2-3.9); M-SPIKE Not Observed g/dL (Not Observed)
--- NOTE | 2021-09-21 17:47 | NUR ---
Pt.son at bedside,updated with pt.condition and plan of care.
--- NOTE | 2021-09-21 23:30 | NUR ---
bedbath done,pt.tolerated well.
[2021-09-22] VITALS (10 sets, daily range): BP systolic 123–193; BP diastolic 57–88
[2021-09-22] MEDS: IV D5/ 0.9% NACL 1,000 ML IV PRN (00:45)
--- NOTE | 2021-09-22 01:15 | NUR ---
Received pt. from Fazal Phillips. patient sleeping arousable and oriented X2. On environmental monitoring specialist NSR rate in the 80's-90's with sbp within desired limits. PICC line patent and infusing with IVF. Safety measures in place. Will continue to monitor.
--- NOTE | 2021-09-22 01:50 | NUR ---
Patient awake oriented to name and at this time becoming restless agitated and verbalizes having pain on her lower abdominal area. Patient will be medicated as requested.
[2021-09-22] MEDS: MORPHINE SULFATE 2 MG/1 ML DISP.SYRIN IV PRN ×2 (01:59→11:07)
--- NOTE | 2021-09-22 04:30 | NUR ---
Patient becoming restless agitated and caught pulling on her PICC line, patient reoriented, and went back to rest.
--- NOTE | 2021-09-22 05:00 | NUR ---
Patient manage to remove her cardiac electrodes, and at this time also pulling her PICC and dressing covering skin tear on left fore arm. Patient reoriented, but unable to follow commands.
[2021-09-22] MEDS: LORAZEPAM 2 MG/1 ML VIAL IV PRN ×2 (05:01→20:14)
[2021-09-22 05:06] LABS: HEMATOCRIT 29.7 % (31.2-41.9); MEAN CORPUSCULAR HEMOGLOBIN 29.5 uug (24.7-32.8); MEAN CORPUSCULAR VOLUME 89.3 fL (75.5-95.3); PLATELET COUNT (AUTO) 168 K/uL (179-408)
[2021-09-22] MEDS: BLOOD SUGAR DIAGNOSTIC 1 EACH STRIP VI SCH ×3 (05:12→17:09)
[2021-09-22] MEDS: INSULIN REGULAR, HUMAN 300 UNIT/3 ML VIAL SQ PRN (05:15)
[2021-09-22 05:26] LABS: CREATININE 1.3 mg/dL (0.6-1.3); MAGNESIUM 1.8 mg/dL (1.8-2.4); PHOSPHOROUS 1.8 mg/dL (2.5-4.9); POTASSIUM 2.9 mmol/L (3.5-5.1); VANCOMYCIN,RANDOM 14.5 ug/mL (18.0-26.0)
--- NOTE | 2021-09-22 05:30 | NUR ---
Acute medical restrains applied due to increasing restlessness and agitation,. Patient also medicated as ordered,.
--- NOTE | 2021-09-22 07:49 | NUR ---
A call given to attending physician and at this time critical labs reported orders received and implemented.
[2021-09-22] MEDS ORDERED: VANCOMYCIN IV 500 MG in IV DEXTROSE 5% 100 ML IV ONE (08:00)
[2021-09-22] MEDS: PANTOPRAZOLE SODIUM 40 MG VIAL IV SCH (08:03)
[2021-09-22] MEDS: REMEDY ESSENTIAL ZINC PASTE 113 GM TOP SCH (08:03)
[2021-09-22] MEDS: IV D5W 1000ML 1,000 ML IV PRN (08:15)
[2021-09-22] MEDS: MEROPENEM 500 MG in IV NORMAL SALINE 50 ML IV SCH ×2 (09:21→20:24)
[2021-09-22] MEDS ORDERED: POTASSIUM PHOSPHATE MM 15 MMOL in IV NORMAL SALINE 250 ML IV ONE (10:00)
[2021-09-22] MEDS: METOPROLOL TARTRATE 5 MG/5 ML VIAL IVP PRN (10:21)
--- NOTE | 2021-09-22 15:00 | NUR ---
Patient with weak coughing during attempts to eat or drink some ensure. notified.
--- NOTE | 2021-09-22 15:00 | NUR ---
Attending physician Marybel Buckley in the unit to see and examine pt. report given orders to continue with care plan received.
[2021-09-22 16:11] LABS: CREATININE 1.2 mg/dL (0.6-1.3)
[2021-09-22] MEDS: ENOXAPARIN SODIUM 30 MG/0.3 ML DISP.SYRIN SQ SCH (16:44)
[2021-09-22] MEDS ORDERED: CLONIDINE-TTS 1 PATCH TD SCH (17:00)
--- NOTE | 2021-09-22 18:06 | NUR ---
Pt's on at bedside and as requested a call made to attending to discuss pt's care plan, awaiting call back.
--- NOTE | 2021-09-22 18:55 | NUR ---
Telephone report given to Fazal Coates pt. will be taken up to room 310.
--- NOTE | 2021-09-22 19:21 | NUR ---
Patient got transferred and got situated in room 310. IV line patent. patient left sleeping easily arousable.
--- NOTE | 2021-09-22 19:25 | NUR ---
Received patient from CCU, patient asleep but response to painful stimuli, hob elevate, on tele monitor, sinus rhythm, hand mittens in place, check for placement and circulations, noted with restlessness, will kept clean dry and comfortable, lisa cath with milky color in moderate amount, cont to monitor.
[2021-09-23] MEDS: BLOOD SUGAR DIAGNOSTIC 1 EACH STRIP VI SCH ×4 (00:01→18:40)
[2021-09-23] MEDS: REMEDY ESSENTIAL ZINC PASTE 113 GM TOP SCH ×3 (00:01→22:05)
[2021-09-23 00:46] VITALS: BP 157/66
[2021-09-23] MEDS: MORPHINE SULFATE 2 MG/1 ML DISP.SYRIN IV PRN ×2 (02:50→10:36)
--- NOTE | 2021-09-23 02:51 | NUR ---
Patient moaning unable to tell her needs, given Morphine iv as ordered, cont to monitor.
[2021-09-23 04:34] VITALS: BP 157/72
--- NOTE | 2021-09-23 06:18 | NUR ---
Patient asleep but arousable, no sob no chest pain, tele monitor sinus rhythm sinus tachy, lisa cath patent, turn and reposition, on low air loss mattress for wound management, patient was kept clean dry and comfortable, with episode of agitation, yelling, screaming, reorient patient but not effective, will kept pain free, cont to monitor.
--- NOTE | 2021-09-23 06:33 | NUR ---
Patient was kept NPO due actual risk for aspiration during feeding yesterday, Dr Fuentes was aware, and son is aware of the currrent situation, kept HOB elevated, kept comfortable, cont to monitor.
[2021-09-23 06:38] LABS: MEAN CORPUSCULAR HEMOGLOBIN 29.5 uug (24.7-32.8); MEAN CORPUSCULAR VOLUME 87.9 fL (75.5-95.3); PLATELET COUNT (AUTO) 164 K/uL (179-408)
[2021-09-23 07:06] LABS: BILIRUBIN,TOTAL 0.3 mg/dL (0.2-1.0); CREATININE 1.1 mg/dL (0.6-1.3); MAGNESIUM 1.8 mg/dL (1.8-2.4); PHOSPHOROUS 2.3 mg/dL (2.5-4.9); TOTAL PROTEIN, SERUM 5.5 g/dL (6.4-8.2)
[2021-09-23 07:15] LABS: POTASSIUM 2.8 mmol/L (3.5-5.1)
--- NOTE | 2021-09-23 07:29 | NUR ---
Lab report Na 155, chloride 122, Kcl 2.8 notify .
--- NOTE | 2021-09-23 07:30 | NUR ---
Received patient in bed asleep but easily arousable. Patient is on 1L NC, No respiratory distress noted at this time. Pt is very reactive to being touched. Safety precautions are in place. Will continue to monitor.
--- NOTE | 2021-09-23 08:27 | NUR ---
Patient brought in from E.R. unit via bed assisted by Fazal Patient placed to bedside monitor and currently on Sinus tachycardia rate of 120-140's. pt. verbalized feeling SOB despite been on High flow 30L and 60%FIO2 with RR in the mid-to upper 20"s. At this time surgery attendant Dr. Quiroz in ad head to toe assessment done by who orders titration of high flow to NC. and as reported by RT who remains at bedside rate just lowered before transferring to the unit. Pt. AAOx3 some confusion and delayed response noted to "s questions. diaper and linen changed done at this time pt. able to give some assistance. Addendum: 09/23/21 at 0914 by KAI MILLER RN the above note was intended for another pt. User error
--- NOTE | 2021-09-23 08:40 | NUR ---
Attending Juan Granados called and notified of pt's arrival to the unit with report of troponing level, and as stated "I'll placed orders" Addendum: 09/23/21 at 0914 by KAI MILLER RN the above note was intended for another pt. User error.
[2021-09-23] MEDS ORDERED: POTASSIUM CHLORIDE 20 MEQ TAB.PRT.SR PO SCH (09:30)
[2021-09-23 09:36] VITALS: BP 174/102
[2021-09-23] MEDS: PANTOPRAZOLE SODIUM 40 MG VIAL IV SCH (10:23)
[2021-09-23] MEDS: MEROPENEM 500 MG in IV NORMAL SALINE 50 ML IV SCH ×2 (10:25→20:34)
[2021-09-23] MEDS: ENOXAPARIN SODIUM 30 MG/0.3 ML DISP.SYRIN SQ SCH (10:25)
[2021-09-23] MEDS ORDERED: POTASSIUM PHOSPHATE MM 15 MMOL in IV NORMAL SALINE 250 ML IV ONE (11:00)
[2021-09-23] MEDS ORDERED: POTASSIUM CHLORIDE 10 MEQ, LIDOCAINE 1% 1 ML in IV DEXTROSE 5% 100 ML IV SCH (11:30)
[2021-09-23] MEDS: POTASSIUM CHLORIDE 50 ML IV SCH ×6 (12:43→22:07)
[2021-09-23 18:08] VITALS: BP 141/55
--- NOTE | 2021-09-23 19:30 | NUR ---
Received pt in no acute respiratory distress. Iv intact and patent. Safety and comfort provided. Will continue to monitor.
--- NOTE | 2021-09-23 19:55 | NUR ---
Pt left in bed. No respiratory distress noted. Pt potassium was 2.8. MD made and aware and orders given. All medications given as ordered. Safety measure implemented. Will endorse to oncoming nurse
[2021-09-23 20:12] VITALS: BP 127/60
--- NOTE | 2021-09-23 22:08 | NUR ---
Hands off report to Migdalia PERSON. Pt stable and in no acute distress. Prescribed medication given and pt tolerated it well.
--- NOTE | 2021-09-23 23:38 | NUR ---
patient's son called and wises for mom to be mitten free Remove mittens at this time. Will reevaluate need for mittens, throughout shift.
[2021-09-23] MEDS: IV D5W 1000ML 1,000 ML IV PRN (23:41)
[2021-09-24] MEDS: MORPHINE SULFATE 2 MG/1 ML DISP.SYRIN IV PRN ×2 (00:17→05:31)
--- NOTE | 2021-09-24 00:35 | NUR ---
Morphine administered as ordered. Pt is yelling. PT says she has pain. Pt unable to state pain level and location of pain. bp 140/78 RR 20 0n 1l o2 via NC.
--- NOTE | 2021-09-24 03:00 | NUR ---
,ITTENS DISCONTINUES AFTER OBSERVATION OF NO PULLING ON REMOVAL OF MITTEN. PT IS WEAK AND WAS BEING MEDICATED WITH ANALGESIC FOR PAIB THIS SHIFT,
[2021-09-24 04:12] VITALS: BP 122/85
[2021-09-24] MEDS: BLOOD SUGAR DIAGNOSTIC 1 EACH STRIP VI SCH ×4 (05:51→18:00)
--- NOTE | 2021-09-24 06:21 | NUR ---
continues to yell with turning and the compression from the blood pressure cuff. Will administer Ativan as ordered for anxiety.bp 158/38 rr 24. O2Sat 97.
[2021-09-24] MEDS: LORAZEPAM 2 MG/1 ML VIAL IV PRN (06:38)
[2021-09-24] MEDS: METOPROLOL TARTRATE 5 MG/5 ML VIAL IVP PRN (07:14)
[2021-09-24] MEDS ORDERED: POTASSIUM CHLORIDE 50 ML IV SCH (07:15)
--- NOTE | 2021-09-24 08:10 | NUR ---
RECEIVED PATIENT SLEEPING. RELAX AND COMFORTABLE. PT IS ON 2L/MIN NC. IV ON PICC LINE HARI RUNNING ON 75ML/HR. SINUS ON MONITOR.
[2021-09-24 08:17] LABS: HEMATOCRIT 33.2 % (31.2-41.9); MEAN CORPUSCULAR HEMOGLOBIN 29.3 uug (24.7-32.8); MEAN CORPUSCULAR VOLUME 87.9 fL (75.5-95.3); PLATELET COUNT (AUTO) 162 K/uL (179-408)
[2021-09-24 08:20] LABS: POTASSIUM 4.2 mmol/L (3.5-5.1)
[2021-09-24] MEDS ORDERED: POTASSIUM CHLORIDE 20 MEQ TAB.PRT.SR PO ONE ×2 (09:15→12:00)
[2021-09-24] MEDS: MEROPENEM 500 MG in IV NORMAL SALINE 50 ML IV SCH ×2 (10:21→20:32)
[2021-09-24] MEDS: PANTOPRAZOLE SODIUM 40 MG VIAL IV SCH (10:22)
[2021-09-24] MEDS: ENOXAPARIN SODIUM 30 MG/0.3 ML DISP.SYRIN SQ SCH (10:22)
[2021-09-24] MEDS: REMEDY ESSENTIAL ZINC PASTE 113 GM TOP SCH ×2 (10:23→20:32)
[2021-09-24 11:33] VITALS: BP 152/60
[2021-09-24 16:00] VITALS: BP 142/86
[2021-09-24] MEDS: IV D5W 1000ML 1,000 ML IV PRN (17:02)
--- NOTE | 2021-09-24 17:30 | NUR ---
PT SON CAME BY TO VISIT. VERBALIZED THAT HE WANTS HER MOTHER TO HAVE TPN NUTRITION. HE SAID HE DISCUSSED ABOUT IT WITH DR. COLEMAN EARLIER AFTERNOON.
--- NOTE | 2021-09-24 18:30 | NUR ---
DR COLEMAN CAME BY AND ASSESS PT. DISCUSSED ABOUT TREATMENT PLAN FOR PT. ALSO INFORMED DR COLEMAN ABOUT THE SONS DEMAND REGARDING FULL TREATMENT AND TPN SOLUTION. WILL NOTIFY NOC TARA RN
--- NOTE | 2021-09-24 19:30 | NUR ---
Received pt in no acute distress. Iv intact. Benavidez intact and draining yellow colored with sediments urine. Pt on nasal cannula. Safety and comfort provided. Will Continue to monitor.
[2021-09-24 20:12] VITALS: BP 129/73
--- NOTE | 2021-09-24 23:32 | NUR ---
Dr. Nathan ordered full code for the pt as per son's request.
[2021-09-25 00:03] VITALS: BP 129/81
[2021-09-25] MEDS: BLOOD SUGAR DIAGNOSTIC 1 EACH STRIP VI SCH ×4 (00:07→17:48)
[2021-09-25 04:12] VITALS: BP 129/51
[2021-09-25] MEDS: IV D5W 1000ML 1,000 ML IV PRN ×2 (06:12→20:14)
--- NOTE | 2021-09-25 06:36 | NUR ---
Pt slept intermittently. Pt turned and repositioned. Pt dressing changed. .Pt iv intact. Pt on 2l nasal cannula at 95%. Pt on sinus rhythm with some PVC and BBB. Safety and comfort provided. Pt on 1L nasal cannula. Vital signs stable.Will endorse to incoming nurse for continuity of care.
[2021-09-25 06:57] LABS: BILIRUBIN,TOTAL 0.4 mg/dL (0.2-1.0); MAGNESIUM 1.8 mg/dL (1.8-2.4); PHOSPHOROUS 2.4 mg/dL (2.5-4.9); POTASSIUM 3.5 mmol/L (3.5-5.1); TOTAL PROTEIN, SERUM 5.5 g/dL (6.4-8.2)
[2021-09-25 07:05] LABS: HEMATOCRIT 31.7 % (31.2-41.9); MEAN CORPUSCULAR VOLUME 87.5 fL (75.5-95.3); PLATELET COUNT (AUTO) 145 K/uL (179-408)
[2021-09-25] MEDS: REMEDY ESSENTIAL ZINC PASTE 113 GM TOP SCH ×2 (08:36→21:31)
[2021-09-25] MEDS: PANTOPRAZOLE SODIUM 40 MG VIAL IV SCH (08:36)
[2021-09-25] MEDS: ENOXAPARIN SODIUM 30 MG/0.3 ML DISP.SYRIN SQ SCH (08:37)
[2021-09-25] MEDS: MEROPENEM 500 MG in IV NORMAL SALINE 50 ML IV SCH ×2 (08:38→20:09)
[2021-09-25 11:32] VITALS: BP 122/72
[2021-09-25 15:53] VITALS: BP 137/72
[2021-09-25 15:59] LABS: *BILIRUBIN,URIN NEGATIVE (NEGATIVE); *BLOOD, URINE 3+ (NEGATIVE); *CLARITY,URINE CLOUDY (CLEAR); *COLOR,URINE YELLOW (YELLOW); *KETONES,URINE NEGATIVE (NEGATIVE); *UROBILINOGEN,URINE 0.2 E.U./dl (NORMAL); LEUKOCYTE ESTERASE ,URINE 1+ (NEGATIVE); NITRITE, URINE NEGATIVE (NEGATIVE); PH,URINE 5.5 (5.0-8.0); UGLUCOSE NEGATIVE (NEGATIVE)
[2021-09-25] MEDS ORDERED: NEUTRA PHOS PACKET PO ONE (16:00)
--- NOTE | 2021-09-25 18:32 | NUR ---
Patient received care well throughout shift with no complaints of pain or distress. IV site patent and intact, running D5W @ 75cc/hr. Wound management completed. Patient now on puree diet with nectar thickened liquids and tolerating well. Bed left in lowest position with call light within reach. Comfort measures provided. Will endorse information to PM nurse.
[2021-09-25 19:09] LABS: BACTERIA,URINE MANY /HPF (NONE SEEN); SQUAMOUS EPITHELIAL CELL,UR MANY /HPF (NONE SEEN); WBC,URINE 80-100 /HPF (0-3); YEAST,URINE MODERATE /HPF (NONE SEEN)
--- NOTE | 2021-09-25 19:45 | NUR ---
Received patient in bed, no sob no chest pain noted at this time, tele monitor sinus rhythm, sinus tachy, no s/s of pain, turn and reposition, lisa cath draining with whitish color urine in moderate amount, afebrile, cont to monitor.
[2021-09-25 20:37] VITALS: BP 146/58
[2021-09-26] MEDS: BLOOD SUGAR DIAGNOSTIC 1 EACH STRIP VI SCH ×4 (00:11→18:07)
[2021-09-26 00:20] VITALS: BP 118/79
[2021-09-26] MEDS: MORPHINE SULFATE 2 MG/1 ML DISP.SYRIN IV PRN (03:13)
--- NOTE | 2021-09-26 04:43 | NUR ---
Patient has episode of crying, given pain meds with effective results, turn and reposition, treatment done on wound, had BM in this shift, lisa cath patent draining with whitish yellow color urine in moderate, kept comfortable, cont to monitor.
[2021-09-26 04:51] VITALS: BP 134/71
[2021-09-26 06:18] LABS: HEMATOCRIT 30.3 % (31.2-41.9); MEAN CORPUSCULAR HEMOGLOBIN 29.2 uug (24.7-32.8); MEAN CORPUSCULAR VOLUME 87.9 fL (75.5-95.3); PLATELET COUNT (AUTO) 138 K/uL (179-408)
[2021-09-26 06:43] LABS: MAGNESIUM 1.6 mg/dL (1.8-2.4); PHOSPHOROUS 2.3 mg/dL (2.5-4.9); POTASSIUM 3.6 mmol/L (3.5-5.1)
--- NOTE | 2021-09-26 06:43 | NUR ---
Patient awake, no sob no chest pain, no further complain of pain, kept comfortable, tele monitor sinus rhythm, cont to monitor.
[2021-09-26] MEDS ORDERED: PANTOPRAZOLE ORAL SUSPENSION 40 MG SUSPDR.PKT PO SCH (07:00)
[2021-09-26] MEDS ORDERED: POTASSIUM CHLORIDE 20 MEQ POWDER PACKET PO ONE (09:15)
[2021-09-26] MEDS: ENOXAPARIN SODIUM 30 MG/0.3 ML DISP.SYRIN SQ SCH (09:15)
[2021-09-26] MEDS: MEROPENEM 500 MG in IV NORMAL SALINE 50 ML IV SCH (09:15)
[2021-09-26] MEDS: REMEDY ESSENTIAL ZINC PASTE 113 GM TOP SCH (09:19)
--- NOTE | 2021-09-26 09:30 | NUR ---
patient awake for breakfast, son at bedside. I fet her brekfast and she had about 25% of it. Son said it was great and he saw improvement in her condition. He said she started to look more aware of things and talks more. Patient was talking to me a little bit. No distress, no pain noted at this time.
[2021-09-26 11:33] VITALS: BP 107/61
[2021-09-26] MEDS: MAGNESIUM SULFATE/D5W 100 ML IV SCH ×2 (11:48→13:09)
[2021-09-26] MEDS ORDERED: NITR100C6 PO (15:42)
[2021-09-26] MEDS ORDERED: SULF1TAB48 PO (15:42)
[2021-09-26] MEDS ORDERED: LOSA50TA39 PO (15:42)
[2021-09-26 16:00] VITALS: BP 123/57
[2021-09-26] MEDS ORDERED: NEUTRA PHOS PACKET PO ONE (17:00)
[2021-09-26 20:12] VITALS: BP 139/63
--- NOTE | 2021-09-26 20:33 | NUR ---
Pt resting in bed comfortably, son at bedside. [facility] here to bulk picker patient to transfer to [facility]. PICC line removed intact. Benavidez in place, draining to gravity. Denies SOB. Tele monitor removed. Pt left unit in stable condition.
== END 2021-09-26 20:45 | DRG 871 ==
LOC: ER 14:10 → CCUOV 17:21 → CCU 17:34 → TELE3 09-22 19:20
PROVIDERS: ADMIT Internal Medicine; ATTEND Nurse Practitioner Acute Care
PROC: 02HV33Z Insertion of Infusion Device into Superior Vena Cava, Percutaneous Approach (ICD-10-PCS; principal; 2021-09-18)
PROC: B548ZZA Ultrasonography of Superior Vena Cava, Guidance (ICD-10-PCS; 2021-09-18)
PROC: 5A09457 Assistance with Respiratory Ventilation, 24-96 Consecutive Hours, Continuous Positive Airway Pressure (ICD-10-PCS; 2021-09-18)
DX: A41.9 Sepsis, unspecified organism (principal); G92.8 Other toxic encephalopathy; N17.0 Acute kidney failure with tubular necrosis; E43 Unspecified severe protein-calorie malnutrition; J69.0 Pneumonitis due to inhalation of food and vomit; J96.21 Acute and chronic respiratory failure with hypoxia; N39.0 Urinary tract infection, site not specified; E87.0 Hyperosmolality and hypernatremia; R64 Cachexia; J44.0 Chronic obstructive pulmonary disease with (acute) lower respiratory infection; Z68.1 Body mass index [BMI] 19.9 or less, adult; C79.9 Secondary malignant neoplasm of unspecified site; R65.20 Severe sepsis without septic shock; Z20.822 Contact with and (suspected) exposure to COVID-19; D64.9 Anemia, unspecified; E66.01 Morbid (severe) obesity due to excess calories; E86.0 Dehydration; E87.5 Hyperkalemia; I10 Essential (primary) hypertension; I25.10 Atherosclerotic heart disease of native coronary artery without angina pectoris; Z66 Do not resuscitate; Z86.73 Personal history of transient ischemic attack (TIA), and cerebral infarction without residual deficits; Z88.0 Allergy status to penicillin; R62.7 Adult failure to thrive; R73.9 Hyperglycemia, unspecified; R53.1 Weakness; I45.10 Unspecified right bundle-branch block; C67.9 Malignant neoplasm of bladder, unspecified
CPT/HCPCS: 36415; 36600; 51702; 71045; 76770; 83605; 83690; 83735; 83970; 84100; 84155; 84156; 84165; 84300; 84443; 84484; 85025; 87040; 87070; 87086; 93005; 94660; A4663; A6209; A6213; C9113; G0378; J0696; J1650; J1815; J1940; J2001; J2060; J2185; J2270; J3370; J3475; J3480; J3490; J7040; J7042; J7050; J7070